=== PATIENT | female | born 1955 | race Caucasian/White ===

== ENCOUNTER → 2016-08-11 08:37 | Outpatient (CLI) | payer MEDICAID ==
[~2016-08-11 08:37] MED LIST: HYDROCHLOROTHIA25 MG PO; ULTRAM50 MG PO
== END | disposition home or self-care (01) ==
LOC: D.RAD 08:37
DX: M25.511 Pain in right shoulder (principal)

== ENCOUNTER → 2016-11-13 13:18 | Outpatient (CLI) | payer MEDICAID ==
[2015-12-18 13:25] VITALS: BMI 38.6
== END | disposition home or self-care (01) ==
LOC: D.MAMMO 10:00
DX: Z12.31 Encounter for screening mammogram for malignant neoplasm of breast (principal)

== ENCOUNTER → 2018-08-02 15:12 | Outpatient (CLI) | payer MEDICAID ==
[2015-12-18 13:25] VITALS: BMI 38.6
== END | disposition home or self-care (01) ==
LOC: D.MRI 15:12
PROVIDERS: ATTEND Family Medicine
DX: M77.41 Metatarsalgia, right foot (principal)

== ENCOUNTER 2019-05-20 09:00 | Outpatient (CLI) | payer MEDICARE ==
[2015-12-18 13:25] VITALS: BMI 38.6
== END 2019-05-20 10:00 | disposition home or self-care (01) ==
LOC: D.MAMMO 09:00
PROVIDERS: ATTEND Family Medicine
DX: Z12.31 Encounter for screening mammogram for malignant neoplasm of breast (principal)